=== PATIENT | female | born 1985 | race American Indian/Alaskan Native ===

== ENCOUNTER 2018-03-08 10:39 | Outpatient (CLI) | payer MEDICAID ==
[2018-03-08 11:01] VITALS: BP 123/63
[2018-03-08] MEDS ORDERED: LACTATED RINGERS 500 ML IV ONE (11:21)
[2018-03-08 11:47] LABS: Bacteria,Urine 1+ /HPF (Negative); Bilirubin,Urine NEG (Negative); Blood,Urine NEG (Negative); Color,Urine Yellow (Yellow); Mucus,Urine FEW /HPF; Protein,Urine <15 mg/dL mg/dL (Negative); Urobilinogen,Urine < 2.0 mg/dL (<2.0)
== END 2018-03-08 14:50 | disposition home or self-care (01) ==
LOC: TRG 10:39 → LD 10:41 → TRG 14:50
PROVIDERS: ATTEND Obstetrics & Gynecology
DX: O47.03 False labor before 37 completed weeks of gestation, third trimester (principal); Z3A.28 28 weeks gestation of pregnancy
CPT/HCPCS: 59025; 81001; 87086

== ENCOUNTER 2018-05-22 08:56 | Inpatient (IN) | payer MEDICAID ==
[2018-05-22] MEDS ORDERED: CERVIDIL VG ONE (11:28)
[2018-05-22] MEDS ORDERED: LACTATED RINGERS 1,000 ML IV SCH ×2 (12:00→13:00)
[2018-05-22] MEDS ORDERED: ePHEDrine SULFATE IV PRN (12:13)
[2018-05-22] MEDS ORDERED: SUBLIMAZE IV PRN (12:13)
[2018-05-22] MEDS ORDERED: BRETHINE IVP PRN (12:13)
[2018-05-22] MEDS ORDERED: MINERAL OIL PO PRN (12:13)
[2018-05-22] MEDS ORDERED: STADOL IV PRN (12:13)
[2018-05-22] MEDS ORDERED: ZOFRAN IV PRN (12:13)
[2018-05-22] MEDS ORDERED: PHENERGAN PO PRN (12:13)
[2018-05-22] MEDS ORDERED: XYLOCAINE 2% INFILTRATI ONE (12:13)
[2018-05-22] MEDS ORDERED: NARCAN 0.4 MG/1 ML IV PRN (12:13)
[2018-05-22] MEDS ORDERED: BRETHINE SUB-Q PRN (12:13)
[2018-05-22 12:27] LABS: Hematocrit 35.2 % (30.3-42.9); Hemoglobin 11.3 gm/dl (10.1-14.3); Mean Corpuscular HGB Conc 32 % (30-34); Mean Corpuscular Hemoglobin 27 pg (28-32); Mean Corpuscular Volume 85 fl (79-97); Platelet Count 321 K/mm3 (140-440); Red Blood Count 4.15 M/mm3 (3.65-5.03)
--- NOTE | 2018-05-22 12:36 | History and Physical Report ---
History of Present Illness Date of examination: 05/22/18 Date of admission: 05/22/18 08:56 Chief complaint: induction of labor for GDM History of present illness: This is a 32 yo at 39+2 weeks here for IOL for GDM. She is a patient of [facility]. She has a hx of 8 pound deliveries. She is a patient with anemia on iron. Juan M has GDM on 16 U NPH at night. She had an abnormal quad with negative cell free DNA. Patient also had some issues with plt. Past History Past Medical History: no pertinent history, other (obesity, ) Past Surgical History: no surgical history, D&C (termination d and c ) Social history: no significant social history. denies: smoking, alcohol abuse, prescription drug abuse - Obstetrical History Expected Date of Delivery: 05/27/18 Actual Gestation: 39 Week(s) 2 Day(s) : 6 Para: 2 Number of Pregnancies: 0 Spontaneous Abortions: 0 Induced : 3 Number of Living Children: 2 Medications and Allergies Allergies Allergy/AdvReac Type Severity Reaction Status Date / Time No Known Allergies Allergy Verified 05/22/18 10:26 Home Medications Medication Instructions Recorded Confirmed Last Taken Type Amoxicillin [Amoxicillin TAB] 1 tab PO BID #20 tablet 12/25/15 05/22/18 Unknown Rx Ibuprofen [Motrin 600 MG tab] 1 tab PO Q8H PRN #30 tablet 12/25/15 05/22/18 Unknown Rx Cyanocobalamin (Vitamin B-12) 1,000 mcg IM DAILY 03/08/18 05/22/18 03/07/18 11: 45 History [Vitamin B12] Iron 1 tab PO DAILY 03/08/18 05/22/18 03/07/18 18:00 History Nitrofurantoin [place]/M-Cryst 100 mg PO Q12HR #14 capsule 03/08/18 05/22/18 Unknown Rx [Macrobid CAP] Formula Tablet 1 tab PO DAILY 03/08/18 05/22/18 03/07/18 18:00 History Active Meds: Active Medications Butorphanol Tartrate (Stadol) 2 mg IV Q2H PRN PRN Reason: Pain , Severe (7-10) Ephedrine Sulfate (Ephedrine Sulfate) 10 mg IV Q2M PRN PRN Reason: Hypotension Fentanyl (Sublimaze) 100 mcg IV Q2H PRN PRN Reason: Labor Pain Lactated Ringer's (Lactated Ringers) 1,000 mls @ 125 mls/hr IV DIRECT PATRICIO Oxytocin/Sodium Chloride (Pitocin/Ns 20 Unit/1000ml Drip) 20 units in 1,000 mls @ 125 mls/hr IV DIRECT PATRICIO Oxytocin/Sodium Chloride (Pitocin/Ns 30 Unit/500ml) 30 units in 500 mls @ 1 mls /hr IV TITR PATRICIO; Protocol Oxytocin/Sodium Chloride (Pitocin/Ns 30 Unit/500ml) 30 units in 500 mls @ 0 mls /hr IV TITR PATRICIO; Protocol Lidocaine (Xylocaine 2%) 20 ml INFILTRATI ONCE ONE Stop: 05/22/18 12:14 Mineral Oil (Mineral Oil) 30 ml PO QHS PRN PRN Reason: Constipation Naloxone HCl (Narcan 0.4 Mg/1 Ml) 0.1 mg IV Q2MIN PRN PRN Reason: Res Rate </= 8 or 02 SAT < 92% Ondansetron HCl (Zofran) 4 mg IV Q8H PRN PRN Reason: Nausea And Vomiting Promethazine HCl (Phenergan) 25 mg PO Q6H PRN PRN Reason: Nausea And Vomiting Terbutaline Sulfate (Brethine) 0.25 mg SUB-Q ONCE PRN PRN Reason: Hyperstimulation/Hypertonicity Terbutaline Sulfate (Brethine) 0.25 mg IVP ONCE PRN PRN Reason: Hyperstimulation/Hypertonicity Review of Systems All systems: negative - Vital Signs Vital signs: Vital Signs Pulse BP 114 H 121/65 05/22/18 09:27 05/22/18 09:27 Temp Pulse Resp BP Pulse Ox 98.7 F 114 H 121/65 05/22/18 10:03 05/22/18 09:27 05/22/18 09:27 - Physical Exam Breasts: Positive: normal Cardiovascular: Regular rate, Normal S1 Lungs: Positive: Clear to auscultation, Normal air movement Abdomen: Positive: normal appearance, soft, normal bowel sounds. Negative: distention, tenderness, guarding Genitourinary (Female): Positive: normal external genitalia, normal perenium Vulva: both: normal Vagina: Positive: normal moisture Anus/Rectum: Positive: normal perianal skin Extremities: Positive: normal Deep Tendon Reflex Grade: Normal +2 - Obstetrical FHR: category 1 Cervical Dilatation: 0.5 Cervical Effacement Percentage: 20 station: -3 Uterine Contraction Pattern: Irregular Uterine Tone Measurement Phase: Resting Uterine Contraction Intensity: Mild Results Result Diagrams: 05/22/18 09:50 Abnormal lab results 05/22/18 Range/Units 09:50 WBC 11.9 H (4.5-11.0) K/mm3 MCH 27 L (28-32) pg All other labs normal. Assessment and Plan A/P IUP 39+2 weeks IOL for GDM on inuslin Obesity HX of large baby IVF, labs IOL with cervidil continue inuslin with blood glucose check. expect vaginal delivery
[2018-05-22] MEDS ORDERED: PITOCin/NS 30 UNIT/500ML 30 UNITS/500 ML BAG IV SCH (13:00)
[2018-05-22] MEDS ORDERED: PITOCin/NS 20 UNIT/1000ML DRIP 20 UNITS/1,000 ML BAG IV SCH (13:00)
[2018-05-22] MEDS ORDERED: TYLENOL PO ONE (20:00)
[2018-05-23] MEDS: PITOCin/NS 30 UNIT/500ML 30 UNITS/500 ML BAG IV SCH ×2 (03:01→08:05)
--- NOTE | 2018-05-23 05:29 | Event Note ---
Date: 05/23/18 Patient was noted to have more contractions sve /-1. Will prepare for epidural. Expect vaginal delivery
--- NOTE | 2018-05-23 07:38 | Progress Note ---
Assessment and Plan O: EFW: 8lbs. A: IUP at term Transitional Labor Epidural Insitu (Just placed, comfortable) SROM-clear fluid Prev. 8lb delivery x 2 P: Pitocin augmentation Anticipate Subjective - Subjective Date of service: 05/23/18 Patient reports: loss of fluid, movement normal, contractions, no new complaints, no vaginal bleeding Objective - Vital Signs Vital Signs: Vital Signs - 12hr 05/22/18 05/22/18 05/22/18 20:20 20:27 20:34 Temperature 98.3 F Pulse Rate 93 H 93 H 101 H Respiratory 20 Rate Blood Pressure 129/68 132/68 Blood Pressure 129/68 [Right] 05/23/18 02:18 Temperature Pulse Rate 100 H Respiratory Rate Blood Pressure 123/69 Blood Pressure [Right] - Exam Breasts: deferred Abdomen: Present: normal appearance, soft FHR: category 1 Uterine Contraction Monitor Mode: External Cervical Dilatation: 9 Cervical Effacement Percentage: 80 station: -1 Uterine Contraction Frequency (min): 2 Uterine Contraction Duration: 60 Uterine Contraction Pattern: Regular Uterine Tone Measurement Phase: Resting Uterine Contraction Intensity: Strong/Firm - Labs Labs: Abnormal Labs 05/22/18 09:50 WBC 11.9 H MCH 27 L Laboratory Results - last 24 hr 05/22/18 05/22/18 05/22/18 09:50 09:50 13:37 WBC 11.9 H RBC 4.15 Hgb 11.3 Hct 35.2 MCV 85 MCH 27 L MCHC 32 RDW 15.0 Plt Count 321 POC Glucose Glucose 2 Hr Postprand Blood Type O POSITIVE Antibody Screen Negative 05/22/18 05/22/18 17:13 21:11 WBC RBC Hgb Hct MCV MCH MCHC RDW Plt Count POC Glucose 83 103 Glucose 2 Hr Postprand Blood Type Antibody Screen
[2018-05-23] MEDS ORDERED: NARCAN 2 MG/2 ML IV PRN (07:56)
[2018-05-23] MEDS ORDERED: ePHEDrine SULFATE IV PRN (07:56)
--- NOTE | 2018-05-23 07:56 | Anesthesia Consultation ---
Anesthesia Consult and Med Hx Date of service: 05/23/18 - Airway Anesthetic Teeth Evaluation: Good ROM Head & Neck: Adequate Mental/Hyoid Distance: Adequate Mallampati Class: Class III Intubation Access Assessment: Possibly Difficult - Pre-Operative Health Status ASA Pre-Surgery Classification: ASA3 Proposed Anesthetic Plan: Epidural, Spinal - Pulmonary Hx Asthma: No COPD: No Hx Pneumonia: No - Cardiovascular System Hx Hypertension: No - Central Nervous System Hx Seizures: No Hx Psychiatric Problems: No - Endocrine Hx Renal Disease: No Hx End Stage Renal Disease: No Hx Non-Insulin Dependent Diabetes: Yes (GDM) Hx Hypothyroidism: No Hx Hyperthyroidism: No - Hematic Hx Anemia: No Hx Sickle Cell Disease: No - Other Systems Hx Alcohol Use: No Hx Obesity: Yes (BMI 40.0)
[2018-05-23] MEDS ORDERED: fentaNYL-BUPIV 2 MCG/ML-0.125% 200 MCG/100 ML BAG EPIDURAL SCH (08:00)
[2018-05-23] MEDS ORDERED: METHERGINE IM ONE (09:07)
[2018-05-23] MEDS ORDERED: CYTOTEC ONE (09:09)
--- NOTE | 2018-05-23 09:19 | Procedure Note ---
OB Delivery Note - Delivery Date of Delivery: 05/23/18 (8-4oz female @ 0905) Surgeon: MARK MARTIN Estimated blood loss: 300cc - Vaginal Delivery presentation: vertex Delivery position: OA Delivery induction: oxytocin Delivery augmentation: rupture of membranes, pitocin Delivery monitor: external FHT, external uterine Route of delivery: Delivery placenta: spontaneous Delivery cord: 3 umbilical vessels Episiotomy: none Delivery laceration: none Anesthesia: epidural - A at 1 minute: 8 (Pushed for viable female on intact perineum and uder epidural anethesia. bulb suctioned and placed skin to skin. Cord blood collected. Spont. placenta, bleeding heavy, fundus messaged, remains boggy, vaginal exploration, no clots, bimanuel messaged. Methergine IM. Bleeding ceased. Skid damon only on perineal inspection, not bleeding.) at 5 minutes: 9 Infant Gender: Female
[2018-05-23] MEDS ORDERED: TUCKS PAD TP PRN (09:20)
[2018-05-23] MEDS ORDERED: NORCO 5/325 PO PRN (09:20)
[2018-05-23] MEDS ORDERED: PHENERGAN PR PRN (09:20)
[2018-05-23] MEDS ORDERED: LANSINOH TP PRN (09:20)
[2018-05-23] MEDS ORDERED: BENADRYL PO PRN (09:20)
[2018-05-23] MEDS ORDERED: PHENERGAN PO PRN (09:20)
[2018-05-23] MEDS ORDERED: TYLENOL PO PRN (09:20)
[2018-05-23] MEDS ORDERED: SODIUM CHLORIDE FLUSH SYRINGE 10 ML IV NR (10:00)
[2018-05-23] MEDS ORDERED: DULCOLAX PR PRN (10:00)
[2018-05-23] MEDS: MOTRIN PO SCH ×2 (11:19→20:20)
[2018-05-23 20:39] LABS: Hematocrit 34.8 % (30.3-42.9); Hemoglobin 11.1 gm/dl (10.1-14.3)
[2018-05-23] MEDS ORDERED: MILK OF MAGNESIA PO PRN (22:00)
[2018-05-24] MEDS: MOTRIN PO SCH ×3 (07:50→21:12)
[2018-05-24] MEDS ORDERED: MOTRIN PO SCH (10:30)
--- NOTE | 2018-05-24 12:23 | Progress Note ---
Assessment and Plan A: PPD#1 s/p at term P: Routine care. Anticipate discharge tomorrow. Subjective - Subjective Date of service: 05/24/18 Principal diagnosis: s/p at term Interval history: Pt c/o cramping pain and need for stronger pain medicine. Otherwise no complaints. Patient reports: appetite normal, voiding normally, pain poorly controlled, ambulating normally, no nauseated : doing well Objective - Vital Signs Latest vital signs: Vital Signs Temp Pulse Resp BP BP Pulse Ox 05/24/18 08:30 98.2 F 93 H 18 100/58 96 05/24/18 00:05 98.5 F 86 18 118/76 05/23/18 22:18 20 05/23/18 20:20 18 05/23/18 16:55 83 F L 96 H 122/64 05/23/18 15:49 122/64 Intake and Output 05/23/18 05/24/18 05/24/18 22:59 06:59 14:59 Intake Total 240 Balance 240 Intake: Oral 240 Other: Total, Intake Amount 240 # Voids Void 1 1 - Exam Breasts: Present: deferred Cardiovascular: Present: Regular rate Lungs: Present: Clear to auscultation Abdomen: Present: soft (obese ) Uterus: Present: fundal height below umbilicus Extremities: Present: normal
--- NOTE | 2018-05-24 14:28 | Discharge Summary ---
Providers - Providers Date of Admission: 05/22/18 08:56 Date of discharge: 05/25/18 Attending physician: JENN MYRICK MD Primary care physician: JENN MYRICK MD Hospitalization Reason for admission: induction of labor Delivery: Procedure details: Please see delivery note. Episiotomy: none Laceration: none complications: none Discharge diagnosis: IUP at term delivered [place] baby: female Hospital course: Pt was admitted for induction of labor and went on to have a spontaneous vaginal delivery which she tolerated well. Her course was uncomplicated and she met discharge criteria on PPD#2. She will follow up in the office in 4 wks with Clare Ariza. Condition at discharge: Stable Disposition: - TO HOME OR SELFCARE - Discharge Diagnoses (1) Term of female Status: Acute (2) Morbid obesity Status: Acute Plan - Discharge Medications Prescriptions: HYDROcodone/APAP 5-325 [[place] 5/325] 1 each PO Q6HR PRN #30 tablet PRN Reason: Pain Ibuprofen [Motrin] 800 mg PO Q8HR PRN #30 tablet PRN Reason: Pain, Moderate (4-6) - Provider Discharge Summary Activity: routine, no sex for 6 weeks, no heavy lifting 4 weeks, no strenuous exercise Diet: routine Instructions: routine Additional instructions: [] Smoking cessation referral if applicable(refer to patient education folder for contact #) [] Refer to [facility] Booklet Call your doctor immediately for: * Fever > 100.5 * Heavy vaginal bleeding ( >1 pad per hour) * Severe persistent headache * Shortness of breath * Reddened, hot, painful area to leg or breast * Drainage or odor from incision. * Keep incision clean and dry at all times and follow doctor's instructions regarding bathing/showering - Follow up plan Follow up: CLARE ARIZA CNM [Advanced Practice Nurse] - 06/21/18 (Please call for appt)
[2018-05-25] MEDS: MOTRIN PO SCH (05:05)
[2018-05-25 12:40] VITALS: BP 117/63
== END 2018-05-25 12:50 | disposition home or self-care (01) | DRG 775 ==
LOC: LD 08:56 → OB 05-23 11:07
PROVIDERS: ADMIT Obstetrics & Gynecology; ATTEND Obstetrics & Gynecology
PROC: 10E0XZZ Delivery of Products of Conception, External Approach (ICD-10-PCS; principal; 2018-05-23)
PROC: 3E0R3BZ Introduction of Anesthetic Agent into Spinal Canal, Percutaneous Approach (ICD-10-PCS; 2018-05-23)
PROC: 00HU33Z Insertion of Infusion Device into Spinal Canal, Percutaneous Approach (ICD-10-PCS; 2018-05-23)
PROC: 3E033VJ Introduction of Other Hormone into Peripheral Vein, Percutaneous Approach (ICD-10-PCS; 2018-05-23)
DX: O24.424 Gestational diabetes mellitus in childbirth, insulin controlled (principal); O99.214 Obesity complicating childbirth; E66.01 Morbid (severe) obesity due to excess calories; Z3A.39 39 weeks gestation of pregnancy; Z37.0 Single live birth; Z68.41 Body mass index [BMI] 40.0-44.9, adult; O99.02 Anemia complicating childbirth; D64.9 Anemia, unspecified
CPT/HCPCS: 36415; 82947; 82962; 85014; 85018; 85027; 86592; 86850; 86900; 86901; 99211; A6250; G0463; J0595; J1815; J2210; J2590; J3010; J7120

== ENCOUNTER 2020-12-22 07:47 | Emergency (ER) | payer SELFPAY ==
[2020-12-22] MEDS ORDERED: SODIUM CHLORIDE 0.9% 1000 ML 1,000 ML IV ONE (08:01)
[2020-12-22] MEDS ORDERED: dexAMETHasone 20 MG/5 ML VIAL IV ONE (08:01)
[2020-12-22] MEDS ORDERED: diphenhydrAMINE 50 MG/ML VIAL IV ONE (08:01)
[2020-12-22] MEDS ORDERED: FAMOTIDINE 20 MG/2 ML INJ IV ONE (08:01)
--- NOTE | 2020-12-22 08:04 | Emergency Department Report ---
ED Allergic Reaction HPI - General Chief complaint: Allergic Reaction Stated complaint: ALLERGIC REACTION Time Seen by Provider: 12/22/20 07:59 Source: patient Mode of arrival: Ambulatory Limitations: No Limitations - History of Present Illness Initial Comments: This is a 35-year-old female nontoxic, well nourished in appearance, no acute signs of distress presents to the ED with c/o of bilateral eyelid swelling and eyebrows with rash that started this morning. Patient states she got her eyebrows done and has history of allergies to diet which she believes that was used. Patient states it is itching and redness. Patient denies any drooling, hoarseness or oropharynx swelling. Patient denies any trauma. She denies any fever, chills, nausea, vomiting, chest pain, shortness of breath, headache, stiff neck, numbness or tingling. Patient denies any drug allergies significant past medical history. MD Complaint: allergic reaction -: This morning Exposure: other (dye) Symptoms: rash, itching, facial swelling (bilateral eyelid). denies: lip s welling, difficulty swallowing, difficulty breathing, orolingual swelling, hoarseness, syncopy, dizziness, nausea, vomiting, abdominal pain Severity: mild Treatment Prior to Arrival: none Previous Allergy History: none - Related Data Home Medications Medication Instructions Recorded Confirmed Last Taken Cyanocobalamin (Vitamin B-12) 1,000 mcg IM DAILY 03/08/18 05/22/18 03/07/18 11:45 [Vitamin B12] Iron 1 tab PO DAILY 03/08/18 05/22/18 03/07/18 18:00 Formula Tablet 1 tab PO DAILY 03/08/18 05/22/18 03/07/18 18:00 Previous Rx's Medication Instructions Recorded Last Taken Type Amoxicillin [Amoxicillin TAB] 1 tab PO BID #20 tablet 12/25/15 Unknown Rx Ibuprofen [Motrin 600 MG tab] 1 tab PO Q8H PRN #30 tablet 12/25/15 Unknown Rx Nitrofurantoin Snyder/M-Cryst 100 mg PO Q12HR #14 capsule 03/08/18 Unknown Rx [Macrobid CAP] HYDROcodone/APAP 5-325 [Lipan 1 each PO Q6HR PRN #30 tablet 05/24/18 Unknown Rx 5/325] Ibuprofen [Motrin] 800 mg PO Q8HR PRN #30 tablet 05/24/18 Unknown Rx Prednisone [predniSONE 10 mg 10 mg PO .TAPER #1 tab.ds.pk 12/22/20 Unknown Rx (6-Day Pack, 21 Tabs)] diphenhydrAMINE [Benadryl CAP] 25 mg PO Q8HR PRN #20 capsule 12/22/20 Unknown Rx Allergies Allergy/AdvReac Type Severity Reaction Status Date / Time No Known Allergies Allergy Verified 05/22/18 10:26 ED Review of Systems ROS: Stated complaint: ALLERGIC REACTION Other details as noted in HPI Comment: All other systems reviewed and negative Constitutional: denies: chills, fever Eyes: denies: eye pain, eye discharge, vision change ENT: denies: ear pain, throat pain Respiratory: denies: cough, shortness of breath, wheezing Cardiovascular: denies: chest pain, palpitations Endocrine: no symptoms reported Gastrointestinal: denies: abdominal pain, nausea, diarrhea Genitourinary: denies: urgency, dysuria, discharge Musculoskeletal: denies: back pain, joint swelling, arthralgia Skin: rash. denies: lesions, change in color, change in hair/nails, pruritus Neurological: denies: headache, weakness, paresthesias Psychiatric: denies: anxiety, depression Hematological/Lymphatic: denies: easy bleeding, easy bruising ED Past Medical Hx - Past Medical History Previous Medical History?: No Hx Hypertension: No Hx Congestive Heart Failure: No Hx Diabetes: No (Current ) Hx Deep Vein Thrombosis: No Hx Renal Disease: No Hx Sickle Cell Disease: No Hx Seizures: No Hx Asthma: No Hx COPD: No Hx HIV: No - Surgical History Past Surgical History?: No - Social History Smoking Status: Never Smoker Substance Use Type: None - Medications Home Medications: Home Medications Medication Instructions Recorded Confirmed Last Taken Type Amoxicillin [Amoxicillin TAB] 1 tab PO BID #20 tablet 12/25/15 05/22/18 Unknown Rx Ibuprofen [Motrin 600 MG tab] 1 tab PO Q8H PRN #30 tablet 12/25/15 05/22/18 Unknown Rx Cyanocobalamin (Vitamin B-12) 1,000 mcg IM DAILY 03/08/18 05/22/18 03/07/18 11:45 History [Vitamin B12] Iron 1 tab PO DAILY 03/08/18 05/22/18 03/07/18 18:00 History Nitrofurantoin Snyder/M-Cryst 100 mg PO Q12HR #14 capsule 03/08/18 05/22/18 Unknown Rx [Macrobid CAP] Formula Tablet 1 tab PO DAILY 03/08/18 05/22/18 03/07/18 18:00 History HYDROcodone/APAP 5-325 [Lipan 1 each PO Q6HR PRN #30 tablet 05/24/18 Unknown Rx 5/325] Ibuprofen [Motrin] 800 mg PO Q8HR PRN #30 tablet 05/24/18 Unknown Rx Prednisone [predniSONE 10 mg 10 mg PO .TAPER #1 tab.ds.pk 12/22/20 Unknown Rx (6-Day Pack, 21 Tabs)] diphenhydrAMINE [Benadryl CAP] 25 mg PO Q8HR PRN #20 capsule 12/22/20 Unknown Rx ED Physical Exam - General Limitations: No Limitations General appearance: alert, in no apparent distress - Head Head exam: Present: atraumatic, normocephalic - Eye Eye exam: Present: PERRL, EOMI, periorbital swelling - ENT ENT exam: Present: normal exam, normal orophraynx, other (uvula midline. no oral angioedema) - Neck Neck exam: Present: normal inspection, full ROM. Absent: tenderness, meningismus, lymphadenopathy - Respiratory Respiratory exam: Absent: respiratory distress - Cardiovascular Cardiovascular Exam: Present: regular rate - Extremities Exam Extremities exam: Present: full ROM - Back Exam Back exam: Present: full ROM - Neurological Exam Neurological exam: Present: alert, oriented X3 - Psychiatric Psychiatric exam: Present: normal affect, normal mood - Skin Skin exam: Present: warm, dry, intact, normal color. Absent: rash ED Course Vital Signs 12/22/20 12/22/20 12/22/20 07:50 08:26 09:10 Temperature 98.0 F Pulse Rate 82 83 Respiratory 22 16 16 Rate Blood Pressure 152/88 Blood Pressure 133/78 [Right] O2 Sat by Pulse 98 100 Oximetry 12/22/20 12/22/20 12/22/20 09:11 09:23 09:53 Temperature Pulse Rate 84 84 79 Respiratory 18 16 Rate Blood Pressure Blood Pressure 112/76 105/78 [Right] O2 Sat by Pulse 99 99 Oximetry - Reevaluation(s) Reevaluation #1: 12/22/20 08:13 Patient is speaking in full sentences with no signs of distress noted. ED Medical Decision Making - Medical Decision Making This is a 35-year-old female that presents with allergic reaction. Patient is stable was examined by me. No angioedema. There is no cellulitis. No hoarseness. Patient received 1 L normal saline, Benadryl, Decadron, and Pepcid in the ED IV. Patient was instructed not to operate any machinery after discharge due to possible drowsiness of Benadryl. Patient has been monitored for a while prior to discharge with improving symptoms. Patient is discharged with prednisone and Benadryl. Patient was referred to Follow-up with a primary care doctor in 3-5 days or if symptoms worsen and continue return to emergency room as soon as possible. At time of discharge, the patient does not seem toxic or ill in appearance. No acute signs of distress noted. Patient agrees to discharge treatment plan of care. No further questions noted by the patient. Critical care attestation.: If time is entered above; I have spent that time in minutes in the direct care of this critically ill patient, excluding procedure time. ED Disposition Clinical Impression: Allergic reaction Qualifiers: Encounter type: initial encounter Qualified Code(s): T78.40XA - Allergy, unspecified, initial encounter Disposition: DC-01 TO HOME OR SELFCARE Is pt being admited?: No Does the pt Need Aspirin: No Condition: Stable Additional Instructions: Follow-up with a primary care doctor in 3-5 days or if symptoms worsen and continue return to emergency room as soon as possible. Prescriptions: diphenhydrAMINE [Benadryl CAP] 25 mg PO Q8HR PRN #20 capsule PRN Reason: itching Prednisone [predniSONE 10 mg (6-Day Pack, 21 Tabs)] 10 mg PO .TAPER #1 tab.ds.pk Referrals: PRIMARY CARE, [Primary Care Provider] - 3-5 Days AYLEEN MARROQUIN MD [Staff Physician] - 3-5 Days Forms: Work/School Release Form(ED) Time of Disposition: 10:31
[2020-12-22 10:49] VITALS: BP 112/70
== END 2020-12-22 10:48 | disposition home or self-care (01) ==
LOC: ED 07:47
DX: T78.40XA Allergy, unspecified, initial encounter (principal); Z79.899 Other long term (current) drug therapy
CPT/HCPCS: 96361; 96374; 96375; 99283; J1100; J1200; J7030